=== PATIENT | female | born 1965 | race Caucasian/White ===

== ENCOUNTER 2018-10-14 07:36 | Inpatient (IN) ==
[2018-10-14] MEDS ORDERED: predniSONE 20 MG TABLET PO ONE (07:48)
[2018-10-14] MEDS ORDERED: Ipratropium/Albuterol Neb 3 ML IH ONE ×2 (07:48→08:16)
--- NOTE | 2018-10-14 07:52 | Emergency Department Note ---
Addendum entered and electronically signed by Chalo Driscoll DO 10/14/18 12:07: Update: The patient was originally to be admitted here. However, after speaking with the hospitalist, Dr. Brantley. He did not feel comfortable keeping the patient here because of her hyperthyroidism and not having endocrinology available for consultation, so he did recommend transfer. I spoke with the patient and she would like to be transferred to [facility]. We are contacting them now to arrange transport. Original Note: Disposition Clinical Impression: Acute exacerbation of chronic obstructive airways disease Atrial fibrillation Qualifiers: Atrial fibrillation type: unspecified Qualified Code(s): I48.91 - Unspecified atrial fibrillation Disposition: Admitted As Inpatient Condition: Fair Referrals: [facility] [Outside] Forms: ED Satisfaction Letter SOB HPI - General Chief Complaint: ED Shortness of Breath/Dyspnea Stated Complaint: SOB Time Seen by Provider: 10/14/18 07:43 Source: patient Mode of arrival: ambulatory Limitations: no limitations Nursing Notes Reviewed: Yes Vital Signs Reviewed: Yes - History of Present Illness Patient presents to the ED the chief complaint of shortness of breath. Patient reports this started yesterday morning. She states that she has not had any fever, chills or chest pain. She does have shortness of breath that is exertional and also at rest. She denies any abdominal pain, nausea, vomiting or diarrhea. No rashes. No pain or swelling in her legs. No history of DVT or PE. She denies having any medical problems. She does not take any medications daily other than vitamin D. She was seen in urgent care last month for similar episode and was diagnosed with bronchitis and put on steroids, which seemed to help, but her symptoms have returned. She denies any history of COPD, but did have an extensive smoking history and just quit smoking 9 months ago - Related Data Home Medications Medication Instructions Recorded Confirmed Cholecalciferol (D-3) [Vitamin D] 09/08/18 Ibuprofen [Ibu-200] 09/08/18 Allergies Allergy/AdvReac Type Severity Reaction Status Date / Time No Known Allergies Allergy Verified 09/08/18 16:36 Review of Systems: As reviewed in the HPI. All other systems reviewed are negative or normal. All systems ED: reviewed and negative except as stated. Review of Systems: As Per HPI Past Medical History - Past Medical History Attestation: Yes The following information was validated with the patient. Source: patient Medical history: Reports: no medical history, other Psychiatric history: Reports: no psych history - Social History Smoking Status: Former smoker Smokeless Tobacco Status: No Alcohol use: Reports: none Drug use: Reports: none Physical Exam CONSTITUTIONAL: [well appearing, alert and in no acute distress] EYES: [EOMI, clear conjunctiva, PERRLA] HENT: [Normocephalic, atraumatic, moist mucus membranes, normal oropharynx] NECK: [normal inspection, full ROM, trachea midline, no obvious swelling] PULMONARY: [Decreased breath sounds throughout all lung cesar, no obvious wheezing, no rales or rhonchi CARDIOVASCULAR: [Tachycardic, slightly irregular, normal heart sounds, no murmurs, distal extremities are warm and well perfused] GASTROINSTESTINAL: [soft, non-tender, non-rigid, non-distended, no guarding, no rebound, normal bowel sounds] GENITOURINARY/RECTAL: [deferred] NEUROLOGIC: [Alert, oriented x3, normal speech, moves all extremities] EXTREMITIES: [Normal inspection, full ROM, no tenderness, no pedal edema, normal capillary refill] MUSCULOSKELETAL: [no gross deformities, atraumatic] SKIN: [No cyanosis, no diaphoresis, normal color, warm, no rash] PSYCHIATRIC: [normal mood and affect] - General Limitations: no limitations General appearance: alert Course Course Narrative: Patient with no formally diagnosed history of COPD, but does have a long smoking history. She is not moving much air, so we will give her steroids and breathing treatments. Labs and chest x-ray. Disposition is pending patient is tachycardic, mildly hypoxic, and over 50. Still feel she is at low risk/ PTP for PE so we will obtain d-dimer as well. Vital Signs Temperature 97.5 F L 10/14/18 07:40 Pulse Rate 150 10/14/18 07:40 Respiratory Rate 19 10/14/18 07:40 Blood Pressure 127/89 10/14/18 07:40 O2 Sat by Pulse Oximetry 92 10/14/18 07:40 Temperature 97.5 F L 10/14/18 07:40 Pulse Rate 162 10/14/18 08:08 Respiratory Rate 18 10/14/18 08:08 Blood Pressure 121/74 10/14/18 08:08 O2 Sat by Pulse Oximetry 92 10/14/18 07:40 Oxygen Delivery Oxygen Delivery Room Air Shortness of Breath/Dyspnea - Medical Records Medical records reviewed: Yes I reviewed the patient's medical records. - Lab Data Lab results reviewed: Yes I reviewed the patient's lab results. - Radiology Data Radiology results reviewed: Yes I reviewed the patient's radiology results. - EKG Data EKG attestation: Yes I reviewed and interpreted this EKG. EKG results narrative: Atrial fibrillation with RVR, rate 167, indeterminate axis. Due to isoelectric lead 1, no acute ischemic change, but patient does have some very mild rate related ST segment depression.
--- NOTE | 2018-10-14 08:04 | Emergency Department Note ---
Disposition Clinical Impression: Acute exacerbation of chronic obstructive airways disease Disposition: Still a Patient Condition: Good Reasons to Return/Additional Instructions: Please take your medication as prescribed, return to the ER if you feel like her getting worse. We have also referred you to our residency clinic if you would like to establish primary care. Referrals: [facility] [Outside] Forms: ED Satisfaction Letter General Adult HPI - General Chief complaint: ED Shortness of Breath/Dyspnea Stated complaint: SOB Time Seen by Provider: 10/14/18 07:43 Source: patient Mode of arrival: ambulatory Limitations: no limitations Nursing Notes Reviewed: Yes Vital Signs Reviewed: Yes - History of Present Illness HPI Narrative: ED attending attestation note: I examined this patient and my medical decision-making was reviewed with the emergency medicine resident Chalo Driscoll. I agree with the documented findings, disposition and treatment plan as described except to the extent set forth below. Briefly: 52-year-old female at least 35+ pack year tobacco history but no pre-existing asthma COPD or any other medical problems does not take any daily medications process emergency permits P increasing shortness breath dyspnea and orthopnea. Her lungs show decreased air movement bilaterally pulse ox 96% on room air she appears thin no chest pain no pedal edema no bibasilar rales. Patient had a chest x-ray duo nebs and steroids screening labs and EKG. Disposition pending. Pain Scale: 0 - Related Data Home Medications Medication Instructions Recorded Confirmed Cholecalciferol (D-3) [Vitamin D] 09/08/18 Ibuprofen [Ibu-200] 09/08/18 Allergies Allergy/AdvReac Type Severity Reaction Status Date / Time No Known Allergies Allergy Verified 09/08/18 16:36 Past Medical History - Past Medical History Medical history: Reports: no medical history, other Psychiatric history: Reports: no psych history - Social History Smoking Status: Former smoker Smokeless Tobacco Status: No Alcohol use: Reports: none Drug use: Reports: none Physical Exam - General Limitations: no limitations General appearance: alert Course Vital Signs Temperature 97.5 F L 10/14/18 07:40 Pulse Rate 150 10/14/18 07:40 Respiratory Rate 10/14/18 07:40 Blood Pressure 127/89 10/14/18 07:40 O2 Sat by Pulse Oximetry 92 10/14/18 07:40 Temperature 97.5 F L 10/14/18 07:40 Pulse Rate 150 10/14/18 07:40 Respiratory Rate 19 10/14/18 07:40 Blood Pressure 127/89 10/14/18 07:40 O2 Sat by Pulse Oximetry 92 10/14/18 07:40 Oxygen Delivery Oxygen Delivery Room Air
[2018-10-14 08:24] LABS: Basophils % 0.6 %; Eosinophils # 0.2 K/mcL (0.0-0.6); Eosinophils % 3.1 %; Hematocrit 39.5 % (35.3-44.9); Hemoglobin 12.6 g/dL (11.5-15.4); Immature Granulocytes % 0.2 % (0-4); Lymphocytes # 1.5 K/mcL (0.6-4.6); Lymphocytes % 28.5 %; Mean Corpuscular HGB Conc 31.9 g/dL (31.6-35.5); Mean Corpuscular Hemoglobin 27.6 pg (28.0-33.3); Mean Corpuscular Volume 86.4 fL (83.0-100.0); Monocytes # 0.3 K/mcL (0.0-1.3); Monocytes % 6.5 %; Neutrophils # 3.2 K/mcL (1.6-8.9); Platelet Count 178 K/mcL (140-400); Red Blood Count 4.57 M/mcL (3.82-4.97); Red Cell Distribution Width 14.2 % (11.5-14.5); Segmented Neutrophils % 61.1 %
[2018-10-14 08:45] LABS: BUN/Creatinine Ratio 41 (6-26); Blood Urea Nitrogen 17 mg/dL (6-20); Calcium 9.7 mg/dL (8.6-10.3); Carbon Dioxide 20 mEq/L (23-29); Chloride 113 mEq/L (98-107); Glucose 129 mg/dL (70-105); Magnesium 1.8 mg/dL (1.6-2.6); Osmolality,Calculated 301 (280-300); Sodium 144 mEq/L (136-145); Troponin I < 0.03 ng/mL (< 0.04); eGFR For Non-African Americans > 60 (> 60)
[2018-10-14] MEDS ORDERED: Isovue-370 500 ML BOTTLE IVP ONE (08:54)
[2018-10-14 09:15] LABS: Thyroid Stimulating Hormone < 0.010 mcIU/mL (0.340-5.600)
[2018-10-14 12:23] LABS: Triiodothyronine (T3) Free 7.67 pg/mL (2.50-3.90); Triiodothyronine (T3) Total 2.49 ng/mL (0.87-1.78)
--- NOTE | 2018-10-14 12:30 | Emergency Department Note ---
Disposition Clinical Impression: Acute exacerbation of chronic obstructive airways disease Atrial fibrillation Qualifiers: Atrial fibrillation type: unspecified Qualified Code(s): I48.91 - Unspecified atrial fibrillation Disposition: Admitted As Inpatient Condition: Fair Referrals: [facility] [[facility]] Forms: ED Satisfaction Letter SOB HPI - General Chief Complaint: ED Shortness of Breath/Dyspnea Stated Complaint: SOB Time Seen by Provider: 10/14/18 07:43 Source: patient Mode of arrival: ambulatory Limitations: no limitations - Related Data Home Medications Medication Instructions Recorded Confirmed Cholecalciferol (D-3) [Vitamin D] 09/08/18 Ibuprofen [Ibu-200] 09/08/18 Allergies Allergy/AdvReac Type Severity Reaction Status Date / Time No Known Allergies Allergy Verified 09/08/18 16:36 Past Medical History - Past Medical History Medical history: Reports: no medical history, other Psychiatric history: Reports: no psych history - Social History Smoking Status: Former smoker Smokeless Tobacco Status: No Alcohol use: Reports: none Drug use: Reports: none Physical Exam - General Limitations: no limitations General appearance: alert Course - Reevaluation(s) Reevaluation #1: Please note I am starting a new chart as the patient's plan of care has changed. She is not hyperthermic or altered, but she does have a very low TSH and elevated T3, T4. Hospitalist, Dr. Brantley, did not feel comfortable admitting and managing the patient here in case she did eventually develop thyroid storm, so we did decide to transfer. Patient had originally requested [facility] however, they do not have endocrinology there, so they did request to go to [facility]. We are attempting to contact [facility] at this time. I will hold off on giving PTU as i don't think she is clinically in thyroid storm until I speak with the receiving facility Time: 12:29 Reevaluation #2: Spoke with [facility]. They will need to speak with the consulting physician and call us back. Does have beds are tight, so that may include a delay. I did discuss our concern would be whether they wanted us to start treatment with PTU which she will discuss with the on-call physician. Update: [facility] still has not gotten back to us as they are full and have a wait list. I spoke with our on-call music autographer, Dr. Whyte and he states that he did not feel that the patient was in thyroid storm, but that there was nothing he could do as we cannot force the hospitalist to accept the patient and they did not feel that she was appropriate in ICU. We will attempt contacting other facilities in the area to see if someone will admit the patient. [facility] also is full and on a wait list. 14:55 - spoke with both nurse practitioner physician assistant ED and ED director. No hospital will accept patient as they are all full and have waiting lists. Patient has now been in the ED for 7 hours 17 minutes. We are also contacting the hospital academic administrator and hospitalist academic administrator to discuss options to get the patient seen/admitted Reevaluation #3: Kayce, the hospital academic administrator, was able to get in touch with other hospital staff. I was called by bed management who said that Dr. Lopez graciously accepted the patient for admission here. This was discussed with the patient and we did apologize for her delay. She is agreeable with staying here. Patient remains stable. Time: 15:47 Vital Signs Temperature 97.5 F L 10/14/18 07:40 Pulse Rate 150 10/14/18 07:40 Respiratory Rate 19 10/14/18 07:40 Blood Pressure 127/89 10/14/18 07:40 O2 Sat by Pulse Oximetry 92 10/14/18 07:40 Temperature 98 F 10/14/18 12:27 Pulse Rate 119 10/14/18 14:52 Respiratory Rate 24 10/14/18 14:52 Blood Pressure 110/76 10/14/18 14:52 O2 Sat by Pulse Oximetry 94 10/14/18 14:52 Oxygen Delivery Oxygen Delivery Room Air Shortness of Breath/Dyspnea - Lab Data Result diagrams: 10/14/18 08:07 10/14/18 08:07 Lab Results 10/14/18 10/14/18 10/14/18 Range/Units 08:07 08:07 08:07 WBC 5.2 (4.3-11.1) K/mcL RBC 4.57 (3.82-4.97) M/mcL Hgb 12.6 (11.5-15.4) g/dL Hct 39.5 (35.3-44.9) % MCV 86.4 (83.0-100.0) fL MCH 27.6 L (28.0-33.3) pg MCHC 31.9 (31.6-35.5) g/dL RDW 14.2 (11.5-14.5) % Plt Count 178 (140-400) K/mcL MPV 12.0 (9.4-12.4) fL Immature Gran % 0.2 (0-4) % Seg Neutrophils % 61.1 % Lymphocytes % 28.5 % Monocytes % 6.5 % Eosinophils % 3.1 % Basophils % 0.6 % Neutrophils # 3.2 (1.6-8.9) K/mcL Lymphocytes # 1.5 (0.6-4.6) K/mcL Monocytes # 0.3 (0.0-1.3) K/mcL Eosinophils # 0.2 (0.0-0.6) K/mcL Basophils # 0.0 (0.0-0.2) K/mcL D-Dimer (0-500) ng/mLFEU Sodium 144 (136-145) mEq/L Potassium 4.0 (3.5-5.1) mEq/L Chloride 113 H (98-107) mEq/L Carbon Dioxide 20 L (23-29) mEq/L BUN 17 (6-20) mg/dL Creatinine 0.41 L (0.60-1.20) mg/dL Est GFR ( Amer) > 60 (> 60) Est GFR (Non-Af Amer) > 60 (> 60) BUN/Creatinine Ratio 41 H (6-26) Glucose 129 H (70-105) mg/dL Calculated Osmolality 301 H (280-300) Calcium 9.7 (8.6-10.3) mg/dL Magnesium 1.8 (1.6-2.6) mg/dL Troponin I < 0.03 (< 0.04) ng/mL B-Natriuretic Peptide 349 H (Less than 100) pg/mL TSH < 0.010 L (0.340-5.600) mcIU/mL Free T4 3.82 H (0.70-2.00) ng/dl Thyroxine (T4) 18.52 H (5.50-11.00) mcg/dL Free T3 7.67 H (2.50-3.90) pg/mL Total T3 2.49 H (0.87-1.78) ng/mL 10/14/18 Range/Units 08:07 WBC (4.3-11.1) K/mcL RBC (3.82-4.97) M/mcL Hgb (11.5-15.4) g/dL Hct (35.3-44.9) % MCV (83.0-100.0) fL MCH (28.0-33.3) pg MCHC (31.6-35.5) g/dL RDW (11.5-14.5) % Plt Count (140-400) K/mcL MPV (9.4-12.4) fL Immature Gran % (0-4) % Seg Neutrophils % % Lymphocytes % % Monocytes % % Eosinophils % % Basophils % % Neutrophils # (1.6-8.9) K/mcL Lymphocytes # (0.6-4.6) K/mcL Monocytes # (0.0-1.3) K/mcL Eosinophils # (0.0-0.6) K/mcL Basophils # (0.0-0.2) K/mcL D-Dimer 740 H (0-500) ng/mLFEU Sodium (136-145) mEq/L Potassium (3.5-5.1) mEq/L Chloride (98-107) mEq/L Carbon Dioxide (23-29) mEq/L BUN (6-20) mg/dL Creatinine (0.60-1.20) mg/dL Est GFR ( Amer) (> 60) Est GFR (Non-Af Amer) (> 60) BUN/Creatinine Ratio (6-26) Glucose (70-105) mg/dL Calculated Osmolality (280-300) Calcium (8.6-10.3) mg/dL Magnesium (1.6-2.6) mg/dL Troponin I (< 0.04) ng/mL B-Natriuretic Peptide (Less than 100) pg/mL TSH (0.340-5.600) mcIU/mL Free T4 (0.70-2.00) ng/dl Thyroxine (T4) (5.50-11.00) mcg/dL Free T3 (2.50-3.90) pg/mL Total T3 (0.87-1.78) ng/mL Critical Care Time Critical Care Time: Yes Total Critical Care Time: 60 Attestation: I personally spent ___60___ minutes devoted to the care of this critically ill patient with new onset A. fib with RVR and hyperthyroidism. This time excludes the time for billable procedures.
[2018-10-14] MEDS ORDERED: Mag Hydrox/Al Hydrox/Simeth 30 ML UDC PO PRN (17:08)
[2018-10-14] MEDS ORDERED: *HR* HYDROcodone/Acet 5/325 mg TABLET PO PRN (17:08)
[2018-10-14] MEDS ORDERED: Acetaminophen 325 MG TABLET PO PRN (17:08)
[2018-10-14] MEDS ORDERED: MOM Conc 10 ML UD.LIQ PO PRN (17:08)
[2018-10-14] MEDS ORDERED: Ondansetron 4 MG/2 ML VIAL IVP PRN (17:08)
[2018-10-14] MEDS ORDERED: Naloxone 0.4 MG/ML INJ IVP PRN (17:08)
--- NOTE | 2018-10-14 17:20 | Internal Med History&Physical ---
Date of Encounter: 10/14/18 Time of Encounter: 16:50 Internal Medicine - H&P: HPI Chief complaint: Short of breath Admitted From: Emergency Dept Plans for Post Hospital Care: Home History of present illness: Ms. Blake is a 52 year old female with no significant medical history presented to ED with complaints of dyspnea. Ms Blake stated she has noticed dyspnea over last 2 days. She stated that she noticed dyspnea both at rest and with exertion. It began yesterday and she thought that if she rested overnight it would get better. No CP or palpitations. Today symptoms persisted and she came to ED. She was found to have hyperthyroidism and was in rapid atrial fibrillation. She was unaware of the atrial fibrillation. She had similar symptoms early August and was seen in urgent care. She was treated for bronchitis and improved. She denies any other previous issues. ? weight loss. She did quit smoking 9 months ago. No diarrhea though she has noticed some mild peripheral edema. No throat pain or neck pain. No tremor. At this time she is feeling somewhat better than when she arrived. She remains in rapid atrial fibrillation. Past Med Surg Social Fam HX - Past Medical History Medical history: no medical history, other Psychiatric history: no psych history - Past Surgical History Surgical History: (x 2), other (tonsillectomy) - Social History Smoking Status: Former smoker (quit 9 months ago) Smokeless Tobacco Status: No Alcohol use: none Drug use: none Occupational status: employed Current living situation: With Family Activity Level: Independent ambulation Recent Out of Country Travel Within the Last 8 Weeks: No Exposure or Possible Exposure to Illness During Travel: No - Family History Mother Living Status: Hx Family Endocrine Disorder: Yes (Graves disease) Sister Hx Family Endocrine Disorder: Yes (Thyroid disease) Internal Medicine - H&P: Meds Cholecalciferol (D-3) [Vitamin D] 2,000 unit PO DAILY 09/08/18 [History] Allergy/AdvReac Type Severity Reaction Status Date / Time No Known Allergies Allergy Verified 09/08/18 16:36 All Systems PM: A 10-system review of systems was performed and is negative for pertinent findings except as documented above in the HPI. - Constitutional Constitutional: fatigue, malaise, weight loss, no night sweats - EENT Eyes: no change in vision, no loss of vision Ears: no decreased hearing Nose, mouth and throat: no dry mouth, no sinus pain - Cardiovascular Cardiovascular ROS IM: dyspnea, edema, no chest pain, no lightheadedness, no palpitations - Respiratory Respiratory: dyspnea, no chest congestion, no pain with cough - Gastrointestinal Gastrointestinal: no diarrhea, no vomiting - Genitourinary Genitourinary: no dysuria, no nocturia - Musculoskeletal Musculoskeletal ROS IM: no arthralgias, no joint swelling - Integumentary Integumentary IM: no rash - Neurological Neurological ROS: no tremor(s) - Endocrine Endocrine IM: fatigue - Hematologic/Lymphatic Hematologic/Lymphatic: no easy bleeding - Allergic/Immunologic Allergic/Immunologic: no tongue swelling - Constitutional Vitals: Temp Pulse Resp BP Pulse Ox 98 F 119 24 110/76 94 10/14/18 12:27 10/14/18 14:52 10/14/18 14:52 10/14/18 14:52 10/14/18 14:52 General appearance: Present: A&O X 3, pleasant, answers questions appropriately Exam: See below - Head Head exam: Present: atraumatic, normocephalic - Eye Eye exam: Present: EOMI, conjuntiva pink - ENT ENT exam: Present: mucous membranes moist, normal exam - Neck Neck exam general surgery: Present: thyromegaly, supple. Absent: tenderness - Respiratory Respiratory exam: Present: CTAB. Absent: rales, respiratory distress, rhonchi, wheezes - Cardiovascular Cardiovascular exam: Present: irregular rhythm, tachycardia. Absent: systolic murmur - GI/Abdominal GI/Abdominal exam: Present: soft. Absent: tenderness - Extremities Exam Extremities exam: Present: warm. Absent: pedal edema, tenderness - Neurological Exam Neurological exam: Present: alert, oriented X3, no focal deficits Additional comments: No tremor - Skin Skin exam: Present: dry, warm. Absent: rash Internal Med - H&P Results - Labs CBC & Chem 7: 10/14/18 08:07 10/14/18 08:07 Labs: Short CBC 10/14/18 Range/Units 08:07 WBC 5.2 (4.3-11.1) K/mcL Hgb 12.6 (11.5-15.4) g/dL Hct 39.5 (35.3-44.9) % Plt Count 178 (140-400) K/mcL Neutrophils # 3.2 (1.6-8.9) K/mcL BMP 10/14/18 08:07 Sodium 144 Potassium 4.0 Chloride 113 H Carbon Dioxide 20 L BUN 17 Creatinine 0.41 L Glucose 129 H Calcium 9.7 Cardiac Enzymes 10/14/18 Range/Units 08:07 Troponin I < 0.03 (< 0.04) ng/mL - Impressions ITS Impressions Chest X-Ray 10/14/18 07:48 IMPRESSION: No acute cardiopulmonary process. D/ / Claudia Doe MD / Claudia Doe MD Interpreting Provider: Claudia Doe MD Chest CTA 10/14/18 08:54 IMPRESSION: No pulmonary embolus Bilateral pleural effusions with septal thickening at the lung bases, compatible with fluid overload-mild edema.In addition, there is airspace disease at the lung bases adjacent to the pleural fluid, favored to represent compressive atelectasis in the absence of clinical signs of pneumonia Underlying emphysema D/ / Arya Skinner MD / Arya Skinner MD Interpreting Provider: Arya Skinner MD - Assessment and Plan (1) Hyperthyroidism with storm Current Visit: Yes Status: Suspected Assessment and plan: Pt presented to ED with dyspnea and found to be hyperthyroid. Most likely has storm as she is in rapid atrial fibrillation. Placed in observation. Started on metoprolol. Check LFTs and plan start Methimazole. Continue Prednisone (though thyroid is not tender). Check ultrasound tomorrow. 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 Most likely related to thyroid. Will start Metoprolol and wean off Cardizem Check echo. ASA 325mg started. Qualifiers: Atrial fibrillation type: paroxysmal Qualified Code(s): I48.0 - Paroxysmal atrial fibrillation - Time Spent With Patient Total time spent is greater than 50% in coordination of care (as documented) at patient's floor/unit and/or counseling patient:
[2018-10-14] MEDS: Aspirin 325 MG TABLET PO SCH (18:42)
[2018-10-14] MEDS ORDERED: *HR* Heparin 5,000 UNIT/ML VIAL SQ SCH (22:00)
[2018-10-15 06:17] LABS: Hematocrit 35.2 % (35.3-44.9); Hemoglobin 11.3 g/dL (11.5-15.4); Mean Corpuscular HGB Conc 32.1 g/dL (31.6-35.5); Mean Corpuscular Hemoglobin 27.6 pg (28.0-33.3); Mean Corpuscular Volume 85.9 fL (83.0-100.0); Mean Platelet Volume 11.8 fL (9.4-12.4); Platelet Count 163 K/mcL (140-400); Red Cell Distribution Width 14.3 % (11.5-14.5)
[2018-10-15 06:37] LABS: BUN/Creatinine Ratio 51 (6-26); Blood Urea Nitrogen 21 mg/dL (6-20); Calcium 9.4 mg/dL (8.6-10.3); Carbon Dioxide 24 mEq/L (23-29); Chloride 110 mEq/L (98-107); Glucose 122 mg/dL (70-105); Osmolality,Calculated 294 (280-300); Potassium 3.8 mEq/L (3.5-5.1); Sodium 140 mEq/L (136-145); eGFR For Non-African Americans > 60 (> 60)
--- NOTE | 2018-10-15 09:23 | Internal Med Progress Note ---
Hospitalist Progress Note - Encounter Date of Encounter: 10/15/18 - Exam Vitals: Temp Pulse Resp BP Pulse Ox 97.9 F 100 16 113/77 94 10/15/18 08:02 10/15/18 08:02 10/15/18 08:02 10/15/18 08:02 10/15/18 08:02 - Assessment and Plan (1) Atrial fibrillation Current Visit: Yes Status: Acute (2) Hyperthyroidism with storm Current Visit: Yes Status: Suspected - Time Spent with Patient Total time spent is greater than 50% in coordination of care (as documented) at patient's floor/unit and/or counseling patient: Internal Medicine: Result - Labs CBC & Chem 7: 10/15/18 06:04 10/15/18 06:04 Labs: Short CBC 10/15/18 Range/Units 06:04 WBC 8.3 D (4.3-11.1) K/mcL Hgb 11.3 L (11.5-15.4) g/dL Hct 35.2 L (35.3-44.9) % Plt Count 163 (140-400) K/mcL BMP 10/14/18 10/15/18 08:07 06:04 Sodium 144 140 Potassium 4.0 3.8 Chloride 113 H 110 H Carbon Dioxide 20 L 24 BUN 17 21 H Creatinine 0.41 L 0.41 L Glucose 129 H 122 H Calcium 9.7 9.4 Cardiac Enzymes 10/14/18 Range/Units 08:07 Troponin I < 0.03 (< 0.04) ng/mL - ABG Interpretation ABG results: PT/INR, D-dimer D-Dimer 740 ng/mLFEU (0-500) H 10/14/18 08:07 - Impressions Impressions Chest CTA 10/14/18 08:54 IMPRESSION: No pulmonary embolus Bilateral pleural effusions with septal thickening at the lung bases, compatible with fluid overload-mild edema.In addition, there is airspace disease at the lung bases adjacent to the pleural fluid, favored to represent compressive atelectasis in the absence of clinical signs of pneumonia Underlying emphysema D/ / Arya Skinner MD / Arya Skinner MD Interpreting Provider: Arya Skinner MD - VTE Documentation of Mechanical Device: Intermittent pneumatic compression device Consult Discharge Plan - Plan Referrals: Marianela Merida DO [Primary Care Provider] - (1) Atrial fibrillation Qualifiers: Atrial fibrillation type: paroxysmal Qualified Code(s): I48.0 - Paroxysmal atrial fibrillation (2) Hyperthyroidism with storm Qualifiers: Thyrotoxicosis type: with diffuse goiter Qualified Code(s): E05.01 - 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
--- NOTE | 2018-10-15 09:27 | Internal Med Progress Note ---
<Edwige Rivera - Last Filed: 10/15/18 15:56> Hospitalist Progress Note - Encounter Date of Encounter: 10/15/18 Time of Encounter: 08:30 - Subjective Interval History: Patient seen and examined at bedside. Ms. Blake states that she is feeling so much better than when she came into the hospital. She states that she no longer feels SOB at rest or on exertion. She states that she has had some hair thinning recently but denies any diarrhea, vomiting, restlessness, irritability, fatigue, insomnia. She is currently in atrial fibrillation which is a new onset since this visit but states that she does not feel palpitations or tachycardia. She states that she finally feels back to normal and would like to know when she can return to work. - Exam Vitals: Temp Pulse Resp BP Pulse Ox 97.9 F 100 16 113/77 94 10/15/18 08:02 10/15/18 08:02 10/15/18 08:02 10/15/18 08:02 10/15/18 08:02 Exam: General- alert and oriented, no acute distress Head- normocephalic, atramatic Eyes- PERRL, EOMI, no exophthalmos Neck- supple, thryoid not enlarged, no lymphadenopathy CV- irregular rate and rhythm, no murmurs, no gallops, no rubs Respiratory- LCTAB, no wheezing, no rhonchi, no rales Abdomen- soft, nontender, BSx4, no palpable masses Neuro- alert and orientedx3 without focal deficits Psychiatric- appropriate mood and affect, normal speech MSK- no deformity noted, no peripheral edema, no calf tenderness - Assessment and Plan (1) Hyperthyroidism Current Visit: Yes Status: Acute Assessment and Plan: Suspect new onset due to Graves disease Family history of hyperthyroidism in mother and sister Patient also admits to hair thinning Thyroid panel shows TSH <0.01 and free T4 3.82 Patient's EKG showed rapid atrial fibrillation Patient showed no signs of tachypnea, diarrhea, anxiety, diaphoresis Started on Cardizem drip, Heparin drip, and IV fluids in the ED Thyroid ultrasound showed mild to moderate thyromegaly with hyperemia, findings suspected to be due to Graves disease, single small nodule in the right lobe LFTs are normal, Methimazole started Patient being weaned off of Cardizem drip Increase dose of metoprolol for rate control Follow up with Endocrinology as outpatient for further management of hyperthyroidism (2) Atrial fibrillation Current Visit: Yes Status: Acute Assessment and Plan: Suspect due to new onset hyperthyroidism [id number] is 1 EKG showed atrial fibrillation in the ED HR was 110 this AM Started on Cardizem drip in the ED, patient was normotensive Echocardiogram ordered Increased Metoprolol from 12.5mg to 25mg for better rate control 325 mg aspirin started mg to Will wean off of Cardizem drip Plan to send patient home on 25mg PO Metoprolol for rate control upon discharge DVT Prophylaxis: SCDs - Time Spent with Patient Total time spent is greater than 50% in coordination of care (as documented) at patient's floor/unit and/or counseling patient: Internal Medicine: Result - Labs CBC & Chem 7: 10/15/18 06:04 10/15/18 06:04 Labs: Short CBC 10/15/18 Range/Units 06:04 WBC 8.3 D (4.3-11.1) K/mcL Hgb 11.3 L (11.5-15.4) g/dL Hct 35.2 L (35.3-44.9) % Plt Count 163 (140-400) K/mcL BMP 10/14/18 10/15/18 08:07 06:04 Sodium 144 140 Potassium 4.0 3.8 Chloride 113 H 110 H Carbon Dioxide 20 L 24 BUN 17 21 H Creatinine 0.41 L 0.41 L Glucose 129 H 122 H Calcium 9.7 9.4 Cardiac Enzymes 10/14/18 Range/Units 08:07 Troponin I < 0.03 (< 0.04) ng/mL - ABG Interpretation ABG results: PT/INR, D-dimer D-Dimer 740 ng/mLFEU (0-500) H 10/14/18 08:07 - Impressions Impressions Chest CTA 10/14/18 08:54 IMPRESSION: No pulmonary embolus Bilateral pleural effusions with septal thickening at the lung bases, compatible with fluid overload-mild edema.In addition, there is airspace disease at the lung bases adjacent to the pleural fluid, favored to represent compressive atelectasis in the absence of clinical signs of pneumonia Underlying emphysema D/ / Arya Skinner MD / Arya Skinner MD Interpreting Provider: Arya Skinner MD - VTE Documentation of Mechanical Device: Intermittent pneumatic compression device Consult Discharge Plan - Plan Referrals: Marianela Merida DO [Primary Care Provider] - <Milo Lopezin John - Last Filed: 10/15/18 18:38> Hospitalist Progress Note - Encounter Date of Encounter: 10/15/18 - Exam Vitals: Temp Pulse Resp BP Pulse Ox 97.7 F 108 16 120/70 93 10/15/18 15:27 10/15/18 17:52 10/15/18 17:52 10/15/18 17:52 10/15/18 15:27 - Assessment and Plan (1) Hyperthyroidism with storm Current Visit: Yes Status: Suspected (2) Atrial fibrillation Current Visit: Yes Status: Acute (3) Hyperthyroidism Current Visit: Yes Status: Acute - Time Spent with Patient Total time spent is greater than 50% in coordination of care (as documented) at patient's floor/unit and/or counseling patient: Internal Medicine: Result - Labs CBC & Chem 7: 10/15/18 06:04 10/15/18 06:04 Labs: Short CBC 10/15/18 Range/Units 06:04 WBC 8.3 D (4.3-11.1) K/mcL Hgb 11.3 L (11.5-15.4) g/dL Hct 35.2 L (35.3-44.9) % Plt Count 163 (140-400) K/mcL BMP 10/15/18 06:04 Sodium 140 Potassium 3.8 Chloride 110 H Carbon Dioxide 24 BUN 21 H Creatinine 0.41 L Glucose 122 H Calcium 9.4 Liver Function 10/15/18 Range/Units 06:04 Total Bilirubin 0.8 (0.3-1.0) mg/dL Direct Bilirubin 0.2 (0.0-0.2) mg/dL AST 19 (13-39) Units/L ALT 20 (7-52) Units/L Alkaline Phosphatase 107 H (34-104) Units/L Albumin 3.5 (3.5-5.7) g/dL - ABG Interpretation ABG results: PT/INR, D-dimer D-Dimer 740 ng/mLFEU (0-500) H 10/14/18 08:07 - Impressions Impressions Echocardiogram 10/15/18 07:00 Impressions: LVEF 60%. Normal LV chamber size, wall thickness. Indeterminate diastolic function. Moderate biatrial enlargement Moderate mitral regurgitation. Mild-moderate tricuspid regurgitation. Mild pulmonary hypertension. Left Ventricular Wall Motion: Rest Echo Findings All wall segments showed normal motion. Findings: Study Quality * Technically adequate exam. ECG Findings * Atrial fibrillation. Left Ventricle * LVEF 60%. * Normal LV chamber size, wall thickness. * Indeterminate diastolic function. Right Ventricle * Mildly dilated right ventricle. Left Atrium * Moderately dilated left atrium. Right Atrium * Moderately dilated right atrium. Interatrial Septum * No evidence of PFO by color Doppler. Aortic Valve * Aortic valve not well visualized. * No aortic regurgitation. * No aortic stenosis. Mitral Valve * Moderate mitral regurgitation. * No mitral stenosis. * Normal mitral valve structure. Tricuspid Valve * Mild-moderate tricuspid regurgitation. * Estimated RVSP is 30 mmHg. * Estimated RA pressure is 5 mmHg. * Mild pulmonary hypertension. * No tricuspid stenosis. Pulmonic Valve * No pulmonic regurgitation. Aorta * Normally sized aortic root. Pericardium * The pericardium appears normal. IVC * Normal IVC dimensions and inspiratory collapse. Pulmonary Artery * Normal visualized portions of the main pulmonary artery. Thyroid Ultrasound 10/15/18 15:30 IMPRESSION: [id number] thyromegaly with hyperemia. Findings suspected to be due to Graves disease. Single small nodule in the right lobe. RECOMMENDATIONS: Nuclear medicine thyroid uptake and scan could be performed to confirm suspected Graves disease. NODULE 1: ACR TI-RADS TR3: Recommend: No follow-up necessary. ACR TI-RADS recommendations: TR3 (3 points): FNA if >= 2.5 cm; follow-up if 1.5-2.4 cm in 1, 3, and 5 years D/ / Owen Hull MD / Owen Hull MD Interpreting Provider: Owen Hull MD - Attending Attestation The history, physical exam, and medical decision making was performed by the medical student either while I was physically present and actively involved or I personally re-performed the exam and medical decision making. I have verified the accuracy of the medical student's documentation with regards to the history, physical exam findings, and medical decision making on 10/15/18. Ms Blake is currently admitted for rapid atrial fibrillation related to hyperthyroidism. She remains moderate to high risk due to potential for worsening clinical status. Ms Blake feels OK. Her heart rate is still high. Meds adjusted and she is still on drip. No fever or chills. No tremor. Exam ALert Comfortable Mucus membranes dry Heart tachy and irreg No wheeze abd soft No edema I/P 1. A fib - increase metoprolol dose. Wean off cardizem 2. Hyperthyroid - start Methimazole Further diagnoses and plan as above. 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
[2018-10-15] MEDS: predniSONE 20 MG TABLET PO SCH (09:45)
[2018-10-15] MEDS: Aspirin 325 MG TABLET PO SCH (09:45)
[2018-10-15 09:53] LABS: Alanine Aminotransferase 20 Units/L (7-52); Albumin 3.5 g/dL (3.5-5.7); Albumin/Globulin Ratio 1.7 (1.1-2.2); Alkaline Phosphatase 107 Units/L (34-104); Aspartate Amino Transferase 19 Units/L (13-39); Bilirubin,Direct 0.2 mg/dL (0.0-0.2); Bilirubin,Indirect 0.6 mg/dL (0.0-1.2); Bilirubin,Total 0.8 mg/dL (0.3-1.0); Globulin 2.1 g/dL (2.4-3.5); Total Protein 5.6 g/dL (6.4-8.9)
[2018-10-15] MEDS: methIMAzole 5 MG TABLET PO SCH (20:38)
[2018-10-16] MEDS: Aspirin 325 MG TABLET PO SCH (08:42)
[2018-10-16] MEDS: methIMAzole 5 MG TABLET PO SCH ×2 (08:42→19:33)
[2018-10-16] MEDS: predniSONE 20 MG TABLET PO SCH (08:43)
--- NOTE | 2018-10-16 16:41 | Internal Med Progress Note ---
<Cristhian Lopez - Last Filed: 10/16/18 17:50> Hospitalist Progress Note - Encounter Date of Encounter: 10/16/18 - Exam Vitals: Temp Pulse Resp BP Pulse Ox 98.0 F 97 16 111/63 96 10/16/18 15:20 10/16/18 15:20 10/16/18 15:20 10/16/18 15:20 10/16/18 15:20 - Assessment and Plan (1) Graves disease Current Visit: Yes Status: Acute (2) Hyperthyroidism with storm Current Visit: Yes Status: Suspected (3) Atrial fibrillation Current Visit: Yes Status: Acute - Time Spent with Patient Total time spent is greater than 50% in coordination of care (as documented) at patient's floor/unit and/or counseling patient: Internal Medicine: Result - Labs CBC & Chem 7: 10/15/18 06:04 10/15/18 06:04 - ABG Interpretation ABG results: PT/INR, D-dimer D-Dimer 740 ng/mLFEU (0-500) H 10/14/18 08:07 Consult Discharge Plan - Plan Referrals: Marianela Merida DO [Primary Care Provider] - - Attending Attestation I examined this patient and my medical decision-making was reviewed with the Resident Physician on 10/16/18. I agree with the documented findings, dispositi on and treatment plan as described except to the extent set forth below. Ms Blake is currently admitted for rapid a fib and hyperthyroidism. She remains moderate to high risk due to potential for worsening clinical status. Ms Blake is feeling OK. No CP. No fever or chills. Heart rate is controlled at rest but increases when standing. Exam alert Comfortable No tremor Heart irreg and controlled at this time Lungs clear Abd soft No edema I/P 1. A fib rapid - increased metoprolol yesterday. Will add PO Cardizem 2. Hyperthyroid - continue methimazole. Outpatient follow up. Further diagnoses and plan as above. <Jya Alves - Last Filed: 10/16/18 21:14> Hospitalist Progress Note - Encounter Date of Encounter: 10/16/18 Time of Encounter: 09:40 - Exam Vitals: Temp Pulse Resp BP Pulse Ox 98.0 F 97 16 111/63 96 10/16/18 15:20 10/16/18 15:20 10/16/18 15:20 10/16/18 15:20 10/16/18 15:20 Exam: General- alert and oriented, no acute distress Head- normocephalic, atramatic Eyes- PERRL, EOMI, no exophthalmos Neck- supple, thryoid not enlarged, no lymphadenopathy CV- irregular rate and rhythm, no murmurs, no gallops, no rubs Respiratory- CTAB, no wheezing, no rhonchi, no rales Abdomen- soft, nontender, BSx4, no palpable masses Neuro- alert and orientedx3 without focal deficits Psychiatric- appropriate mood and affect, normal speech MSK- no deformity noted, no peripheral edema, no calf tenderness - Assessment and Plan (1) Atrial fibrillation Current Visit: Yes Status: Acute Assessment and Plan: -Likely secondary to new onset acute hyper thyroidism -Patient has a CHADSVASc score of 1 - Was on the Cardizem drip this a.m. along with 25mg metoprolol twice a day. (he was on 12.5 mg metoprolol yesterday) -Continues to be tachycardic Plan: -patient currently weaned off of cardizem drip, currently on metoprolol 25BID for rate control, Added Cardizem 30 mg PO q8h . - will monitor HR and if continues to be tachycardic then might have to put her back on the Cardizem drip. - on ASA 325 mg (2) Hyperthyroidism Current Visit: Yes Status: Acute Assessment and Plan: Suspect new onset due to Graves disease Family history of hyperthyroidism in mother and sister Thyroid panel shows TSH <0.01 and free T4 3.82 Patient's EKG showed rapid atrial fibrillation Patient showed no signs of tachypnea, diarrhea, anxiety, diaphoresis Thyroid ultrasound showed mild to moderate thyromegaly, findings suspected to be due to Graves disease, single small nodule in the right lobe Currently on methimazole 5mg PO BID Plan: Monitor for signs of Thrombocytopenia Spoke to Dr Lin's clinic, and the earliest that they can see the patient is in December 2018. Therefore, patient will follow-up with her PCP as of now who will send a referral to Dr. Lin's clinic DVT Prophylaxis: SCDs - Time Spent with Patient Total time spent is greater than 50% in coordination of care (as documented) at patient's floor/unit and/or counseling patient: Internal Medicine: Result - Labs CBC & Chem 7: 10/15/18 06:04 10/15/18 06:04 - ABG Interpretation ABG results: PT/INR, D-dimer D-Dimer 740 ng/mLFEU (0-500) H 10/14/18 08:07 - VTE Documentation of Mechanical Device: Intermittent pneumatic compression device <Cristhian Lopez - Last Filed: 10/16/18 17:50> (2) Hyperthyroidism with storm Qualifiers: Thyrotoxicosis type: with diffuse goiter Qualified Code(s): E05.01 - Thyrot oxicosis with diffuse goiter with thyrotoxic crisis or storm (3) Atrial fibrillation Qualifiers: Atrial fibrillation type: paroxysmal Qualified Code(s): I48.0 - Paroxysmal atrial fibrillation <Jay Alves - Last Filed: 10/16/18 21:14> (1) Atrial fibrillation Qualifiers: Atrial fibrillation type: paroxysmal Qualified Code(s): I48.0 - Paroxysmal atrial fibrillation
[2018-10-16] MEDS ORDERED: *HR* Metoprolol 5 MG/5 ML VIAL IVP ONE (18:19)
[2018-10-17 06:30] LABS: Basophils # 0.1 K/mcL (0.0-0.2); Basophils % 0.5 %; Eosinophils # 0.2 K/mcL (0.0-0.6); Eosinophils % 2.3 %; Hematocrit 35.2 % (35.3-44.9); Hemoglobin 11.4 g/dL (11.5-15.4); Immature Granulocytes % 0.3 % (0-4); Lymphocytes # 4.1 K/mcL (0.6-4.6); Mean Corpuscular HGB Conc 32.4 g/dL (31.6-35.5); Mean Corpuscular Hemoglobin 27.8 pg (28.0-33.3); Mean Corpuscular Volume 85.9 fL (83.0-100.0); Mean Platelet Volume 12.3 fL (9.4-12.4); Monocytes # 0.8 K/mcL (0.0-1.3); Monocytes % 7.6 %; Neutrophils # 4.8 K/mcL (1.6-8.9); Platelet Count 171 K/mcL (140-400); Red Cell Distribution Width 14.3 % (11.5-14.5); Segmented Neutrophils % 48.3 %
[2018-10-17 06:50] LABS: BUN/Creatinine Ratio 44 (6-26); Blood Urea Nitrogen 20 mg/dL (6-20); Carbon Dioxide 22 mEq/L (23-29); Chloride 113 mEq/L (98-107); Glucose 98 mg/dL (70-105); Osmolality,Calculated 299 (280-300); Potassium 3.8 mEq/L (3.5-5.1); Sodium 143 mEq/L (136-145); eGFR For Non-African Americans > 60 (> 60)
[2018-10-17] MEDS: Aspirin 325 MG TABLET PO SCH (10:06)
[2018-10-17] MEDS: predniSONE 20 MG TABLET PO SCH (10:06)
[2018-10-17] MEDS: methIMAzole 5 MG TABLET PO SCH ×2 (10:06→20:33)
--- NOTE | 2018-10-17 16:01 | Event Note ---
Date of Encounter: 10/17/18 Time of Encounter: 09:15 to serve as attestation pending resident completion of daily progress note I examined this patient and my medical decision-making was reviewed with the Resident Physician Dr Alves. I agree with the documented findings, disposition and treatment plan as described except to the extent set forth below. Ms Blake is currently admitted for rapid atrial fibrillation related to hyperthyroidism. Ms Blake is awake. she never hax palpitations, but HR cont to elevate with minimal activity. no cp, pressure, sob, presyncope or syncope. gen- alert, awake,appears stated age eyes- pupils equal round , no exophthalmos cv- tachy rate and reg rhythm, normal s1,s2, no murmurs appreciated lungs- ctabl, no wheezing, rhonchi or crackles neuro- AAOx3 1. A fib 2/2 Hyperthyroidism - increase metoprolol dose, cont q 8 hr cardizem, failed walking this afternoon and morning and further dose adjustments made. is off cardizem gtt 2. Hyperthyroid - cont Methimazole. case d/w endo by this team and pt requires pcp referral for endo appt upon dc, as US c/w ryley Escobedo prednisone started empirically for thyroiditis Further diagnoses and plan as noted by resident
--- NOTE | 2018-10-17 16:16 | Internal Med Progress Note ---
<Precious Marie - Last Filed: 10/17/18 17:33> Hospitalist Progress Note - Encounter Date of Encounter: 10/17/18 - Exam Vitals: Temp Pulse Resp BP Pulse Ox 98.0 F 92 16 126/74 96 10/17/18 16:13 10/17/18 16:13 10/17/18 16:13 10/17/18 16:13 10/17/18 16:13 - Assessment and Plan (1) Atrial fibrillation Current Visit: Yes Status: Acute (2) Hyperthyroidism Current Visit: Yes Status: Acute - Time Spent with Patient Total time spent is greater than 50% in coordination of care (as documented) at patient's floor/unit and/or counseling patient: Internal Medicine: Result - Labs CBC & Chem 7: 10/17/18 05:46 10/17/18 05:46 Labs: Short CBC 10/17/18 Range/Units 05:46 WBC 10.0 (4.3-11.1) K/mcL Hgb 11.4 L (11.5-15.4) g/dL Hct 35.2 L (35.3-44.9) % Plt Count 171 (140-400) K/mcL Neutrophils # 4.8 (1.6-8.9) K/mcL BMP 10/17/18 05:46 Sodium 143 Potassium 3.8 Chloride 113 H Carbon Dioxide 22 L BUN 20 Creatinine 0.45 L Glucose 98 Calcium 9.0 - ABG Interpretation ABG results: PT/INR, D-dimer D-Dimer 740 ng/mLFEU (0-500) H 10/14/18 08:07 Consult Discharge Plan - Plan Referrals: Marianela Merida DO [Primary Care Provider] - - Attending Attestation I examined this patient and my medical decision-making was reviewed with the Resident Physician Dr Alves. I agree with the documented findings, disposition and treatment plan as described except to the extent set forth below. Ms Blake is currently admitted for rapid atrial fibrillation related to hyperthyroidism. Ms Blake is awake. she never hax palpitations, but HR cont to elevate with minimal activity. no cp, pressure, sob, presyncope or syncope. gen- alert, awake,appears stated age eyes- pupils equal round , no exophthalmos cv- tachy rate and reg rhythm, normal s1,s2, no murmurs appreciated lungs- ctabl, no wheezing, rhonchi or crackles neuro- AAOx3 1. A fib 2/2 Hyperthyroidism - increase metoprolol dose, cont q 8 hr cardizem, failed walking this afternoon and morning and further dose adjustments made. is off cardizem gtt 2. Hyperthyroid - cont Methimazole. case d/w endo by this team and pt requires pcp referral for endo appt upon dc, as US c/w ryley Escobedo prednisone started empirically for thyroiditis Further diagnoses and plan as noted by resident <Jay Alves - Last Filed: 10/17/18 20:30> Hospitalist Progress Note - Encounter Date of Encounter: 10/17/18 Time of Encounter: 10:15 - Subjective Interval History: Patient continues to be tachycardic in 110 to 130s when she is ambulated from her bed to the floor. Yesterday she was on metoprolol 25 twice a day and Cardizem PO 30 mg Q8H. Owing to her tachycardia, patient's metoprolol dose has been increased to 37.5 twice a day. Patient's prednisone has been discontinued, which was initially started because of concerns for thyroiditis. On physical exam patient has no symptoms of tachypnea, palpitations, diarrhea, or confusion. We will reassess her heart rate tomorrow - Exam Vitals: Temp Pulse Resp BP Pulse Ox 98.0 F 92 16 126/74 96 10/17/18 16:13 10/17/18 16:13 10/17/18 16:13 10/17/18 16:13 10/17/18 16:13 Exam: General- alert and oriented, no acute distress Head- normocephalic, atramatic Eyes- PERRL, EOMI, no exophthalmos Neck- supple, thryoid not enlarged, no lymphadenopathy CV- irregular rate and rhythm, no murmurs, no gallops, no rubs Respiratory- CTAB, no wheezing, no rhonchi, no rales Abdomen- soft, nontender, BSx4, no palpable masses Neuro- alert and orientedx3 without focal deficits Psychiatric- appropriate mood and affect, normal speech MSK- no deformity noted, no peripheral edema, no calf tenderness - Assessment and Plan (1) Atrial fibrillation Current Visit: Yes Status: Acute Assessment and Plan: -Likely secondary to new onset acute hyper thyroidism -Patient has a CHADSVASc score of 1 -She continues to be on PO Cardizem 30 q8h, her metoprolol dose has been increased to 37.5 mg twice a day with the first dose starting at 9 PM this eveni ng -Continues to be tachycardic when ambulated Plan: -Will reassess her later this evening for any signs of flow worsening tachycardia despite being on higher dose of metoprolol (2) Hyperthyroidism Current Visit: Yes Status: Acute Assessment and Plan: Suspect new onset due to Graves disease Family history of hyperthyroidism in mother and sister Thyroid panel shows TSH <0.01 and free T4 3.82 Patient's EKG showed rapid atrial fibrillation Patient showed no signs of tachypnea, diarrhea, anxiety, diaphoresis Thyroid ultrasound showed mild to moderate thyromegaly, findings suspected to be due to Graves disease, single small nodule in the right lobe Currently on day 3 of methimazole, increased from 5mg to 10 mg PO BID Prednisone and has been discontinued because of no clinical signs of t hyroiditis Plan: Monitor for signs of Thrombocytopenia Spoke to Dr Lin's clinic, and the earliest that they can see the patient is in December 2018. Therefore, patient will follow-up with her PCP as of now upon discharge who will send a referral to Dr. Lin's clinic DVT Prophylaxis: SCDs - Time Spent with Patient Total time spent is greater than 50% in coordination of care (as documented) at patient's floor/unit and/or counseling patient: Internal Medicine: Result - Labs CBC & Chem 7: 10/17/18 05:46 10/17/18 05:46 Labs: Short CBC 10/17/18 Range/Units 05:46 WBC 10.0 (4.3-11.1) K/mcL Hgb 11.4 L (11.5-15.4) g/dL Hct 35.2 L (35.3-44.9) % Plt Count 171 (140-400) K/mcL Neutrophils # 4.8 (1.6-8.9) K/mcL BMP 10/17/18 05:46 Sodium 143 Potassium 3.8 Chloride 113 H Carbon Dioxide 22 L BUN 20 Creatinine 0.45 L Glucose 98 Calcium 9.0 - ABG Interpretation ABG results: PT/INR, D-dimer D-Dimer 740 ng/mLFEU (0-500) H 10/14/18 08:07 - VTE Documentation of Mechanical Device: Intermittent pneumatic compression device <Precious Marie - Last Filed: 10/17/18 17:33> (1) Atrial fibrillation Qualifiers: Atrial fibrillation type: paroxysmal Qualified Code(s): I48.0 - Paroxysmal atrial fibrillation <Jay Alves - Last Filed: 10/17/18 20:30> (1) Atrial fibrillation Qualifiers: Atrial fibrillation type: paroxysmal Qualified Code(s): I48.0 - Paroxysmal atrial fibrillation
[2018-10-18] MEDS: Aspirin 325 MG TABLET PO SCH (08:30)
[2018-10-18] MEDS: methIMAzole 5 MG TABLET PO SCH ×2 (08:31→21:17)
--- NOTE | 2018-10-18 11:10 | Discharge Summary ---
<Precious Marie - Last Filed: 10/18/18 12:08> Date of Encounter: 10/18/18 - Discharge Diagnosis (1) Atrial fibrillation Status: Acute Qualifiers: Atrial fibrillation type: paroxysmal Qualified Code(s): I48.0 - Paroxysmal atrial fibrillation (2) Hyperthyroidism Status: Acute Hospital course: Ms. Blake is a 52 year old female - Time Spent with Patient Total time spent providing and/or coordinating discharge services: Time spent: Greater than 30 minutes (40 min) - Discharge Medications Prescriptions: New Aspirin 325 mg PO DAILY 30 Days #30 tablet Diltiazem [Cardizem] 30 mg PO TID 30 Days #90 tablet methIMAzole [Tapazole] 10 mg PO BID 30 Days #60 tablet Metoprolol [Lopressor] 37.5 mg PO BID 30 Days #60 tablet Continue Cholecalciferol (D-3) [Vitamin D] 2,000 unit PO DAILY Home Medications: Cholecalciferol (D-3) [Vitamin D] 2,000 unit PO DAILY 09/08/18 [History] Aspirin 325 mg PO DAILY 30 Days #30 tablet 10/18/18 [Rx] Diltiazem [Cardizem] 30 mg PO TID 30 Days #90 tablet 10/18/18 [Rx] Metoprolol [Lopressor] 37.5 mg PO BID 30 Days #60 tablet 10/18/18 [Rx] methIMAzole [Tapazole] 10 mg PO BID 30 Days #60 tablet 10/18/18 [Rx] Allergies/Adverse Reactions: Allergy/AdvReac Type Severity Reaction Status Date / Time No Known Allergies Allergy Verified 09/08/18 16:36 Date of admission: 10/15/18 18:33 Primary care physician: Marianela Merida - Constitutional Vitals: Temp Pulse Resp BP Pulse Ox 97.8 F 83 20 110/64 92 10/18/18 03:24 10/18/18 11:39 10/18/18 11:39 10/18/18 11:39 10/18/18 11:39 - Patient Status Disposition: Home, Self-Care Condition: Fair - Discharge Instructions Instructions: Metoprolol (By mouth), Diltiazem (By mouth), Aspirin (By mouth), Methimazole (By mouth), Atrial Fibrillation (DC), Hyperthyroidism (DC) Follow Up With: Marianela Merida DO [Primary Care Provider] - (please call for follow up within one week of d/c) Lillian Lin MD [Partnered Physician] - (appointment requested) Additional Instructions: - F/u with primary care doctor for new diagnosis of hyperthyroidism and Atrial fibrillation. -Ask your PCP to refer you to an learning and development analyst for a further management of hyperthyroidism -Continue taking your methimazole 10 mg twice a day for hyperthyroidism -Continue taking your by mouth Cardizem 30 mg 3 times a day, and metoprolol 37.5 mg twice a day 4 of rapid atrial fibrillation -Return to the ED if experiencing persistent sweating, shaking, agitation, restlessness, confusion, high fever or diarrhea - Attending Attestation I examined this patient and my medical decision-making was reviewed with the Resident Physician Dr Alves. I agree with the documented findings, disposition and treatment plan as described except to the extent set forth below. Ms Blake is currently admitted for rapid atrial fibrillation related to hyperthyroidism. Her heart rate is controlled and she is discharging to home with PCP fu for referral to endo. Ms Blake is awake. no palpitations, cp, presyncope or sob. ambulated with nursing this morning and did great, HR in90s, no sxs. discharge plan discussed and all questions answered gen- alert, awake,appears stated age eyes- pupils equal round , no exophthalmos cv- reg rate and reg rhythm, normal s1,s2, no murmurs appreciated lungs- ctabl, normal effort on ra neuro- AAOx3 1. A fib 2/2 Hyperthyroidism, now NSR - cont BB and CCB on dc , cont ASA on dc for chadsvasc of 1 2. Hyperthyroid - cont Methimazole. case d/w endo by this team and pt requires pcp referral for endo appt upon dc, US c/w Graves Further diagnoses and plan as noted by resident time spent on dc 40 min <Jay Alves - Last Filed: 10/18/18 21:53> - NOTES TO OUTPATIENT PROVIDER Notes to Outpatient Provider: - Patient needs to be referred to learning and development analyst for optimization of her medications for new onset hyperthyroidism. -Patient's CHADVASc score is 1, therefore she only needs to be on aspirin 325 mg for stroke prevention because of rapid atrial fibrillation. Date of Encounter: 10/18/18 Time of Encounter: 10:00 - Discharge Diagnosis (1) Atrial fibrillation Priority: Secondary Status: Acute Qualifiers: Atrial fibrillation type: paroxysmal Qualified Code(s): I48.0 - Paroxysmal atrial fibrillation (2) Hyperthyroidism Priority: Primary Status: Acute Hospital course: Ms. Blake is a 52 year old female with no significant medical history who presented to the ED with complaints of nonexertional dyspnea that started 2 days ago. Patient denied any chest pain or palpitations. Initial workup in the ED showed a patient's EKG was negative for any ST-T changes but she was in atrial fibrillation, her labs showed a TSH < 0.010, Free T4: 3.82, T4: 18.52 and Free T3: 7.67 with concerns for new onset acute hyperthyroidism. She was admitted to the hospital for management. Patient was initially put on 5 mg twice a day methimazole for her new onset hyperthyroidism but was bumped to 10 mg twice a day. She was put on Cardizem drip to manage her atrial fibrillation and the drip was insufficient to manage her condition, we rate controlled her with metoprolol initial dose of 12.5. On day 3 of her hospital stay we weaned her off the Cardizem drip and patient was started on Cardizem PO 30 mg every 8 hours. We also had to bump up her metoprolol dose from a 12.5 mg BID to 25mg, and finally 37.5 mg BID. Patient was on aspirin 325 mg during the course of hospital stay for secondary stroke prevention due to new onset A. fib. She received a brief course of prednisone because of concerns for thyroiditis but was eventually discontinued on day 4 of her hospital stay. Patient was deemed hemodynamically stable to be discharged from the hospital and follow-up with her PCP for further management. - Time Spent with Patient Total time spent providing and/or coordinating discharge services: Date of admission: 10/15/18 18:33 Primary care physician: Marianela Merida - Constitutional Vitals: Temp Pulse Resp BP Pulse Ox 97.8 F 93 16 119/80 96 10/18/18 03:24 10/18/18 06:46 10/18/18 06:46 10/18/18 06:46 10/18/18 06:46 General appearance: Present: A&O X 3, pleasant, answers questions appropriately Exam: General- alert and oriented, no acute distress Head- normocephalic, atramatic Eyes- PERRL, EOMI, no exophthalmos Neck- supple, thryoid not enlarged, no lymphadenopathy CV- irregular rate and rhythm, no murmurs, no gallops, no rubs Respiratory- CTAB, no wheezing, no rhonchi, no rales Abdomen- soft, nontender, BSx4, no palpable masses Neuro- alert and orientedx3 without focal deficits Psychiatric- appropriate mood and affect, normal speech MSK- no deformity noted, no peripheral edema, no calf tenderness - Patient Status Overall status at discharge: patient is progressing back to baseline - Diet and Activity Activity: resume usual activities as tolerated Diet: regular diet - VTE Documentation of Mechanical Device: Intermittent pneumatic compression device
--- NOTE | 2018-10-19 07:49 | Electrocardiograph Report ---
[address] [address] Test Date: 2018-10-14 Pat Name: Vilma Blake Department: EXAM21 Room: 2NE35 Gender: F Section Beamer: : 1965 Requested By: Diego Claudio Order Number: [id number] Reading MD: Tristan Jo Measurements Intervals [place] Rate: 167 P: [place]: QRS: 95 QRSD: 95 T: 62 QT: 267 QTc: 445 Interpretive Statements Atrial fibrillation with rapid V-rate Borderline right axis deviation Low voltage, extremity and precordial leads Electronically Signed On 10-19-2018 7:47:38 EDT by Tristan Jo
--- NOTE | 2018-10-19 07:52 | Electrocardiograph Report ---
[address] [address] Test Date: 2018-10-14 Pat Name: Vilma Blake Department: EXAM21 Room: [facility] Gender: F Fashion Designer: : 1965 Requested By: Dayo Enamorado Order Number: [id number] Reading MD: Tristan Jo Measurements Intervals [place] Rate: 119 P: [place]: QRS: 99 QRSD: 84 T: 64 QT: 330 QTc: 451 Interpretive Statements Atrial fibrillation PVC or aberrant conduction Borderline right axis deviation Borderline low voltage, extremity leads Electronically Signed On 10-19-2018 7:50:28 EDT by Tristan Jo
[2018-10-19] MEDS ORDERED: Diltiazem CD (24hr) 120 MG CAPSULE PO SCH (09:00)
[2018-10-19] MEDS: Aspirin 325 MG TABLET PO SCH (09:28)
[2018-10-19] MEDS: methIMAzole 5 MG TABLET PO SCH (09:28)
--- NOTE | 2018-10-19 10:35 | Internal Med Progress Note ---
<Suleiman Shirley - Last Filed: 10/19/18 13:23> Hospitalist Progress Note - Encounter Date of Encounter: 10/19/18 Time of Encounter: 09:10 - Subjective Interval History: Mrs. Blake was seen and examined at bedside this morning. She continues to be asymptomatic and is having no shortness of breath, palpitations, chest pains, f cynthia, chills. She was scheduled to be discharged yesterday, however with exertion her heart rate did increase to the 130s. Calcium channel sean was increased and we will attempt again. Patient walked 2 laps around unit without symptoms. Heart rate ranging from 110- 120s. She will be discharged with advise to exercise lightly only with frequent breaks and to follow up with PCP. - Exam Vitals: Temp Pulse Resp BP Pulse Ox 97.6 F 76 84 125/60 95 10/19/18 06:40 10/19/18 03:37 10/19/18 06:40 10/19/18 06:40 10/19/18 06:40 Exam: Gen.: Vitals noted. No acute distress. AAOx3, sitting up comfortably at bedside HEENT: PERRL/EOMI, oropharynx clear, Normocephalic, atraumatic, MMM Neck: Supple. No adenopathy. Cardiac: Irregularly irregular rhythm, no murmur, +S1/S2, No BLE edema Pulmonary: CTA bilaterally, no wheezes, rales or rhonchi, equal chest expansion, unlabored breathing Abdomen: soft, nontender, BS noted, no guarding, no palpable HSM Skin: warm and dry, no visible lesions. MSK: ROM intact, no joint swelling noted, gait no assessed while in bed. Non tender calf or clubbing Neuro: A&Ox3, moves all extremities, no focal deficits, sensation intact Psych: Appropriate mood and behavior, AOx3 - Assessment and Plan (1) Atrial fibrillation Current Visit: Yes Status: Acute Assessment and Plan: -Likely secondary to new onset acute hyperthyroidism -Patient has a CHADSVASc score of 1 (female) -Current regimen includes metoprolol 37.5 mg twice a day, Cardizem CD 120 mg -Pattern confirmed on both EKG and telemetry. - Rate currently controlled in the 70s to 90s at rest and acceptable in the 110s on exertion - Anticoagulation with full dose aspirin. Plan: -We will continue current AV flor blockers and she will follow up with her primary care physician - Continue methimazole 10 mg twice a day - She will follow-up with her primary care physician for further medication titration changes, as well as repeat thyroid studies - Scheduled outpatient endocrinology follow-up (2) Hyperthyroidism Current Visit: Yes Status: Acute Assessment and Plan: - Suspect new onset due to Graves disease - Family history of hyperthyroidism in mother and sister - Thyroid panel shows TSH <0.01 and free T4 3.82 - Patient's EKG showed rapid atrial fibrillation as above - Currently expressing no symptoms of tachypnea, diarrhea, anxiety, diaphoresis - Thyroid ultrasound showed mild to moderate thyromegaly, findings suspected to be due to Graves disease, single small nodule in the right lobe - Currently on day 4 of methimazole, 10 mg PO BID Prednisone and has been discontinued because of no clinical signs of thyroiditis Plan: Monitor for signs of Thrombocytopenia Spoke to Dr Lin's clinic, and the earliest that they can see the patient is in December 2018. Therefore, patient will follow-up with her PCP as of now upon discharge who will send a referral to Dr. Lin's clinic -- Currently only sign at this time his tachycardia which is being managed as above for atrial fibrillation -- Patient is stable for discharge with outpatient follow-up. She should continue her methimazole and have repeat thyroid functions per discretion of PCP -- Anticoagulation with aspirin full dose (3) Anemia Current Visit: Yes Status: Suspected Assessment and Plan: - H/H very minimally diminished 11.4/35.2 - No history or previous lab results to compare with - May be related to new diagnosis of hyperthyroidism - No signs or symptoms of bleeding - Patient should follow-up with her primary care physician to ensure resolution or further workup - Time Spent with Patient Total time spent is greater than 50% in coordination of care (as documented) at patient's floor/unit and/or counseling patient: Internal Medicine: Result - Labs CBC & Chem 7: 10/17/18 05:46 10/17/18 05:46 - ABG Interpretation ABG results: PT/INR, D-dimer D-Dimer 740 ng/mLFEU (0-500) H 10/14/18 08:07 - VTE Documentation of Mechanical Device: Intermittent pneumatic compression device Consult Discharge Plan - Plan Instructions: Metoprolol (By mouth), Diltiazem (By mouth), Aspirin (By mouth), Methimazole (By mouth), Atrial Fibrillation (DC), Hyperthyroidism (DC), Chronic Obstructive Pulmonary Disease (DC) Additional Instructions: - F/u with primary care doctor for new diagnosis of hyperthyroidism and Atrial fibrillation. -Ask your PCP to refer you to an thermo processor for a further management of hyperthyroidism -Continue taking your methimazole 10 mg twice a day for hyperthyroidism -Continue taking your by mouth Cardizem 120 mg Daily and metoprolol 37.5 mg twice for atrial fibrillation - Take it easy and take plenty of rest with exertion. -Return to the ED if experiencing persistent sweating, shaking, agitation, restlessness, confusion, high fever or diarrhea Referrals: Marianela Merida DO [Primary Care Provider] - (please call for follow up within one week of d/c) Lillian Lin MD [Partnered Physician] - (appointment requested) Prescriptions: Aspirin 325 mg PO DAILY 30 Days #30 tablet Diltiazem CD (24hr) [Cardizem CD] 120 mg PO DAILY #30 cap.er.24h methIMAzole [Tapazole] 10 mg PO BID 30 Days #60 tablet Metoprolol [Lopressor] 37.5 mg PO BID 30 Days #60 tablet <Precious Marie - Last Filed: 10/19/18 14:58> Hospitalist Progress Note - Encounter Date of Encounter: 10/19/18 - Exam Vitals: Temp Pulse Resp BP Pulse Ox 97.8 F 98 19 129/62 96 10/19/18 10:33 10/19/18 10:33 10/19/18 10:33 10/19/18 10:33 10/19/18 10:33 - Assessment and Plan (1) Atrial fibrillation Current Visit: Yes Status: Acute (2) Hyperthyroidism Current Visit: Yes Status: Acute (3) Anemia Current Visit: Yes Status: Suspected - Time Spent with Patient Total time spent is greater than 50% in coordination of care (as documented) at patient's floor/unit and/or counseling patient: Internal Medicine: Result - Labs CBC & Chem 7: 10/17/18 05:46 10/17/18 05:46 - ABG Interpretation ABG results: PT/INR, D-dimer D-Dimer 740 ng/mLFEU (0-500) H 10/14/18 08:07 - Attending Attestation I examined this patient and my medical decision-making was reviewed with the Resident Physician Dr Shirley. I agree with the documented findings, disposition and treatment plan as described except to the extent set forth below. Ms Blake is currently admitted for rapid atrial fibrillation related to hyperthyroidism. Her heart rate is much better controlled and she is discharging to home with PCP fu for referral to endo. Ms Blake is awake. she was saddened to not dc yesterday afternoon. and is very eager to dc today. she remains without cp, pressure, palpitations, sob or prescyncope both at rest and with ambulation. she was again walked today and HR into 110s up to 120 which is improved from yesterday afternoon with dose adjustment, and remains asx. Seh has demonstrated on multiple walks quick recovery of her heart rate with sitting to rest (walks have varied from two laps around unit to walking several minutes on unit with HR elevating above 100 on average after about 5 minutes). She feels very comfortable with dc and was educated on s/s to watch for while exerting herself with instruction for light activity only until seen in follow up with PCP as suspect HR will cont to increase somehwat with exertion while awaiting hyperthyroid treatment to take full effect. gen- alert, awake,appears stated age cv- reg rate and irreg/irreg reg rhythm, normal s1,s2, no murmurs appreciated lungs- ctabl, normal effort on ra neuro- AAOx3 1. A fib 2/2 Hyperthyroidism, - cont BB and Cardizem CD on dc (residetn has re sent CCB rx for new dosing), cont ASA on dc for chadsvasc of 1 2. Hyperthyroid - cont Methimazole. case d/w endo by this team and pt requires pcp referral for endo appt upon dc, US c/w Graves Further diagnoses and plan as noted by resident <Suleiman Shirley - Last Filed: 10/19/18 13:23> (1) Atrial fibrillation Qualifiers: Atrial fibrillation type: paroxysmal Qualified Code(s): I48.0 - Paroxysmal atrial fibrillation (3) Anemia Qualifiers: Anemia type: unspecified type Qualified Code(s): D64.9 - Anemia, unspecified <Precious Marie - Last Filed: 10/19/18 14:58> (1) Atrial fibrillation Qualifiers: Atrial fibrillation type: paroxysmal Qualified Code(s): I48.0 - Paroxysmal atrial fibrillation (3) Anemia Qualifiers: Anemia type: unspecified type Qualified Code(s): D64.9 - Anemia, unspecified
[2018-10-19 10:38] VITALS: BP 129/62
[2018-10-19] MEDS ORDERED: *HR* LORazepam 2 MG/ML VIAL IVP ONE (11:57)
[2018-10-19] MEDS ORDERED: Haloperidol Lactate 5 MG/ML VIAL IVP ONE (11:58)
== END 2018-10-19 16:00 | disposition home or self-care (01) | DRG 308 ==
LOC: 2NENU 07:36 → EMEROOARM 07:36 → 2NENU 17:11 → SUATTDRO 10-15 18:33
PROVIDERS: ADMIT Internal Medicine; ATTEND Internal Medicine